=== PATIENT | female | born 1990 | race African-American/Black ===

== ENCOUNTER 2017-04-25 14:58 | Emergency (ER) | payer BC ==
[~2017-04-25] VITALS: Ht 157.5 cm; Wt 47.5 kg
[2017-04-25 15:11] VITALS: BP 110/74; PULSE 98; RESP 18; TEMP 98.6; O2SAT 100
[2017-04-25] MEDS ORDERED: BACT800T5 PO (18:17)
[2017-04-25] MEDS ORDERED: PHEN0.4T PO (18:17)
--- NOTE | 2017-04-25 18:17 | PD ---
HPI Chief Complaint: Complaint Time Seen by Provider: 18:06 Travel History International Travel<30 days: No Contact w/Intl Traveler<30days: No Traveled to known affect area: No History of Present Illness HPI 26-year-old female complains of hematuria and dysuria. Patient states that she noticed hematuria 3 days ago. Patient states that her menstruation period started the next day. Patient states that she has dysuria since then. Patient denies any back pain. Patient states that she had pelvic pain from her menstruation. PFSH Past Medical History Medical History: Denies Significant Hx Diminished Hearing: No Immunizations Current: Yes ?: Not LMP: CURRENTLY ON PERIOD Past Surgical History Surgical History: No Previous Surgery Social History Alcohol Use: Yes (Ocasionally) Tobacco Use: No Substance Use: No Review of Systems General / Constitutional: No: Fever Eyes: No: Visual changes HENT: No: Headaches Cardiovascular: No: Chest Pain or Discomfort Respiratory: No: Shortness of Breath Gastrointestinal: No: Abdominal Pain Genitourinary: Positive: Dysuria, Hematuria Musculoskeletal: No: Pain Skin: No Rash Neurologic: No: Weakness Psychiatric: No: Depression Endocrine: No: Polydipsia Hematologic/Lymphatic: No: Easy Bruising Physical Exam Narrative GENERAL: Well-nourished, well-developed patient. SKIN: Focused skin assessment warm/dry. HEAD: Normocephalic. EYES: No scleral icterus. No injection or drainage. NECK: Supple, trachea midline. No JVD or lymphadenopathy. CARDIOVASCULAR: Regular rate and rhythm without murmurs, gallops, or rubs. RESPIRATORY: Breath sounds equal bilaterally. No accessory muscle use. GASTROINTESTINAL: Abdomen soft, nondistended. Mild tenderness on palpation suprapubic area. No rebound tenderness. No mass. MUSCULOSKELETAL: No cyanosis, or edema. BACK: Nontender without obvious deformity. No CVA tenderness. Data Data Last Documented VS Vital Signs Date Time Temp Pulse Resp B/P (MAP) Pulse Ox O2 Delivery O2 Flow Rate FiO2 04/25/17 15:11 98.6 98 18 110/74 (86) 100 Orders Orders Ed Urine Pregnancytest Poc (04/25/17 15:14) Urinalysis - C+S If Indicated (04/25/17 18:11) [facility] Medical Decision Making Medical Screen Exam Complete: Yes Emergency Medical Condition: Yes Interpretation(s) Urine test negative. Differential Diagnosis Differential diagnosis including urethritis, UTI, pyelonephritis, nephrolithiasis. Narrative Course 26-year-old female with hematuria and dysuria. Diagnosis Primary Impression: UTI (urinary tract infection) Qualified Codes: N30.01 - Acute cystitis with hematuria Patient Instructions: General Instructions Additional Instructions: Take medications as directed. Follow-up with personal physician. Return if worse. Med/Other Pt SpecificInfo: Prescription(s) given Scripts Phenazopyridine (Pyridium) 100 Mg Tab 100 MG PO Q8H Y for DYSURIA, #12 TAB 0 Refills Prov: Dylon Bravo MD 04/25/17 Sulfamethoxazole-Trimethoprim (Bactrim DS) 800-160 Mg Tab 1 TAB PO BID for Infection, #14 TAB 0 Refills Prov: Dylon Bravo MD 04/25/17 Disposition: 01 DISCHARGE HOME Condition: Stable Dylon Bravo MD Apr 25, 2017 18:17
[2017-04-25 18:32] LABS: BILIRUBIN, URINE NEG (NEG); BLOOD, URINE LARGE (NEG); GLUCOSE,URINE NEG (NEG); KETONE, URINE 10 mg/dL (NEG); MUCUS URINE MOD /lpf (OCC); NITRITE,URINE NEG (NEG); SQUAMOUS EPITHELIAL CELL URINE 37 /hpf (0-5); URINE LEUKOCYTE ESTERASE LARGE (NEG); WHITE BLOOD CELL CLUMPS FEW
[2017-04-25 18:33] LABS: URINE COLOR LIGHT-RED (YELLW/STRAW)
== END 2017-04-25 18:50 | disposition home or self-care (01) ==
LOC: NEPD 14:58 → EDSEX 14:58 → NEPD 18:50
DX: N30.01 Acute cystitis with hematuria (principal)
CPT/HCPCS: 81001; 84703; 87086; 99283